=== PATIENT | male | born 1945 | race Caucasian/White ===

== ENCOUNTER → 2016-06-25 | Outpatient (CLI) | payer OTHER ==
[~2016-06-25] MED LIST: REGADENOSON 0.4 MG/5 ML SYRINGE ONE
== END | disposition home or self-care (01) ==
LOC: CFH 07:51
PROVIDERS: ATTEND Internal Medicine Cardiovascular Disease
DX: R07.89 Other chest pain (principal)
CPT/HCPCS: 78452; 93017; A9502; J2785

== ENCOUNTER 2016-07-04 09:09 | Observation (INO) | payer OTHER ==
[2016-07-03 15:25] LABS: ASPARTATE AMINO TRANSFERASE 9 U/L (15-37); BLOOD UREA NITROGEN 22 mg/dL (7-18)
[~2016-07-04] VITALS: Ht 188 cm; Wt 104.5 kg
[~2016-07-04 09:09] MED LIST changes: +ASPI-496 PO; +CHOL20002 PO; +LISI1TAB7 PO; +METF500T4 PO; +PITA4TAB2 PO; -REGADENOSON 0.4 MG/5 ML SYRINGE ONE; +ROSU20TA PO
[2016-07-04 09:46] VITALS: BP 143/79
[2016-07-04] MEDS ORDERED: FENTANYL PF 100 MCG/2ML ONE (10:48)
[2016-07-04] MEDS ORDERED: MIDAZOLAM 1 MG/ML, 5ML ONE (10:48)
[2016-07-04] MEDS ORDERED: LIDOCAINE 2%, 20ML ONE (10:49)
[2016-07-04] MEDS ORDERED: TICAGRELOR 90 MG TABLET ONE (11:27)
[2016-07-04] MEDS ORDERED: BIVALIRUDIN 250 MG ONE (11:27)
[2016-07-04] MEDS ORDERED: VERAPAMIL 2.5 MG/ML, 2ML ONE (11:43)
[2016-07-04] MEDS ORDERED: HEPARIN 1,000 UNITS/ML, 10ML ONE (11:45)
[2016-07-04] MEDS: SODIUM CHLORIDE 0.9% 1,000 ML IV SCH ×3 (13:51→22:44)
[2016-07-04 14:07] VITALS: BP 117/77
[2016-07-04] MEDS: metFORMIN 500 MG TABLET PO SCH (15:10)
[2016-07-04 20:49] VITALS: BP 102/64
[2016-07-04] MEDS ORDERED: ATORVASTATIN 40 MG TABLET PO SCH (21:00)
[2016-07-04] MEDS: TICAGRELOR 90 MG TABLET PO SCH (21:07)
[2016-07-05 04:19] VITALS: BP 114/78
[2016-07-05] MEDS ORDERED: METOPROLOL SUCCINATE 25 MG TAB.ER.24H PO SCH (06:00)
[2016-07-05] MEDS: metFORMIN 500 MG TABLET PO SCH (08:00)
[2016-07-05] MEDS ORDERED: LISINOPRIL 20 MG TABLET PO SCH (09:00)
[2016-07-05] MEDS ORDERED: ASPIRIN 81 MG TABLET EC PO SCH (09:00)
[2016-07-05] MEDS ORDERED: CHOLECALCIFEROL 1,000 UNIT TABLET PO SCH (09:00)
[2016-07-05] MEDS ORDERED: HYDROCHLOROTHIAZIDE 25 MG TABLET PO SCH (09:00)
[2016-07-05 09:01] VITALS: BP 118/74
[2016-07-05] MEDS: TICAGRELOR 90 MG TABLET PO SCH (09:26)
[2016-07-05] MEDS ORDERED: TICA90TA PO (09:56)
[2016-07-05] MEDS ORDERED: METO25TA91 PO (09:56)
== END 2016-07-05 12:49 | disposition home or self-care (01) ==
LOC: CACL 09:09 → 5SO 12:39 → CACL 13:51
PROVIDERS: ADMIT Internal Medicine Cardiovascular Disease; ATTEND Internal Medicine Cardiovascular Disease
DX: I25.110 Atherosclerotic heart disease of native coronary artery with unstable angina pectoris (principal); I10 Essential (primary) hypertension; E78.2 Mixed hyperlipidemia; E11.9 Type 2 diabetes mellitus without complications; E66.9 Obesity, unspecified; R94.30 Abnormal result of cardiovascular function study, unspecified; Z95.5 Presence of coronary angioplasty implant and graft
CPT/HCPCS: 36415; 71020; 80053; 85025; 85610; 85730; 93458; 99152; 99156; 99157; C1724; C1725; C1760; C1769; C1874; C1887; C1894; C9600; C9602; G0378; J0583; J1644; J2250; J3010; J3490; J7030; Q9967

== ENCOUNTER → 2017-02-12 | Outpatient (CLI) | payer OTHER ==
[~2017-02-12] MED LIST changes: +METO25TA91 PO; +REGADENOSON 0.4 MG/5 ML SYRINGE ONE; +TICA90TA PO
== END | disposition home or self-care (01) ==
LOC: CFH 12:04
PROVIDERS: ATTEND Nurse Practitioner Family
DX: I25.10 Atherosclerotic heart disease of native coronary artery without angina pectoris (principal)
CPT/HCPCS: 78452; 93017; A9502; J2785

== ENCOUNTER → 2018-06-08 | Outpatient (CLI) | payer OTHER ==
[~2018-06-08] MED LIST changes: +METF500T17 PO; -METF500T4 PO; -REGADENOSON 0.4 MG/5 ML SYRINGE ONE; -ROSU20TA PO; +ROSU20TA2 PO
== END | disposition home or self-care (01) ==
LOC: CFH 10:05
PROVIDERS: ATTEND Internal Medicine Cardiovascular Disease
DX: I35.8 Other nonrheumatic aortic valve disorders (principal); I25.9 Chronic ischemic heart disease, unspecified; I10 Essential (primary) hypertension; E78.5 Hyperlipidemia, unspecified; E11.9 Type 2 diabetes mellitus without complications; Z95.818 Presence of other cardiac implants and grafts
CPT/HCPCS: 78452; 93017; 93306; A9502

== ENCOUNTER 2018-06-18 15:46 | Emergency (ER) | payer OTHER ==
[~2018-06-18] VITALS: Ht 188 cm; Wt 102.0 kg
[2018-06-18 16:00] VITALS: BP 135/77
[2018-06-18] MEDS ORDERED: DIPH,PERTUSS(ACELL),TET VAC/PF 0.5 ML IM-VACC ONE ×2 (16:30→16:45)
[2018-06-18] MEDS ORDERED: LIDOCAINE-MPF 1%, 5ML ONE (16:50)
[2018-06-18] MEDS ORDERED: LIDOCAINE-MPF 1%, 5ML INFIL ONE (17:00)
== END 2018-06-18 17:18 | disposition home or self-care (01) ==
LOC: ED 17:10
DX: S61.233A Puncture wound without foreign body of left middle finger without damage to nail, initial encounter (principal); I10 Essential (primary) hypertension; E11.9 Type 2 diabetes mellitus without complications; F17.200 Nicotine dependence, unspecified, uncomplicated; W26.0XXA Contact with knife, initial encounter; Y93.89 Activity, other specified; Y92.009 Unspecified place in unspecified non-institutional (private) residence as the place of occurrence of the external cause; Y99.8 Other external cause status
CPT/HCPCS: 12001; 90471; 90715

== ENCOUNTER → 2019-09-26 | Outpatient (CLI) | payer OTHER ==
[~2019-09-26] MED LIST changes: +LISI1TAB20 PO; -LISI1TAB7 PO
== END | disposition home or self-care (01) ==
LOC: CFH 11:44
PROVIDERS: ATTEND Internal Medicine Cardiovascular Disease
DX: I25.10 Atherosclerotic heart disease of native coronary artery without angina pectoris (principal); R07.89 Other chest pain; I10 Essential (primary) hypertension
CPT/HCPCS: 78452; 93017; A9502